=== PATIENT | female | born 1950 | race Caucasian/White ===

== ENCOUNTER 2022-01-17 03:57 | Emergency (ER) | payer SELFPAY ==
--- NOTE | ~2022-01-17 | XR_ITS ---
EXAMINATION: XR chest 1V portable DATE: 01/17/2022 06:02 INDICATION: Shortness of breath. TECHNIQUE: A single frontal view of the chest was obtained. COMPARISON: None. FINDINGS: The patient is rotated to her left. There are airspace opacities in all left lung zones wit h a perihilar and lateral predominance. There is a small left pleural effusion. There are mild airspa ce opacities in right lower lung zone. A calcified right lung nodule and calcified right hilar lymph nodes are consistent with old granulomatous disease. No pneumothorax. The heart size is normal. There is a right internal jugular port with tip in right atrium. IMPRESSION: 1. Airspace opacities in left lung and right lower lung zone suspicious for some combination of atele ctasis, pneumonia, malignancy, and treatment changes. Consider chest CT. 2. Small left pleural effusion. Reviewed, dictated and finalized at location A. TRUCTION MANAGER IMPRESSION: 1. Airspace opacities in left lung and right lower lung zone suspicious for lilian e combination of atelectasis, pneumonia, malignancy, and treatment changes. Con change person chest CT. 2. Small left pleural effusion.
--- NOTE | ~2022-01-17 | CT_ITS ---
EXAMINATION: CT brain wo con DATE: 01/17/2022 06:03 INDICATION: Syncope. TECHNIQUE: Computed tomography (CT) of the head was performed without intravenous contrast. The mA wa s adjusted according to patient size. Iterative reconstruction technique was employed. The dose-lengt h product was 605.33 mGy-cm. COMPARISON: None FINDINGS: In the right frontal lobe, there are 2 hyperdense masses with surrounding vasogenic edema. The masses are contiguous with hyperdense extra-axial material. These findings are consistent with in traparenchymal hematomas with subarachnoid extension. There is no acute ischemic infarct. The ventric les are normal in size. There is 2 mm leftward midline shift. The orbits are normal. There is mild mu cosal thickening in the ethmoid sinuses. There are bilateral mastoid effusions. IMPRESSION: 1. Two acute intraparenchymal hematomas in right frontal lobe with subarachnoid extension, most likel y arising at foci of intraparenchymal metastatic disease. Reviewed, dictated and finalized at location A. TRO MECHANICAL SOLAR TECHNICIAN IMPRESSION: 1. Two acute intraparenchymal hematomas in right frontal lobe with subarachnoid extension, most likely arising at foci of intraparenchymal metastatic disease.
--- NOTE | 2022-01-17 04:17 | ECG_ITS ---
Measurements Intervals [place] Rate: 85 P: 60 ND: 135 QRS: 78 QRSD: 75 T: 94 QT: 370 QTc: 442 Interpretive Statements SINUS RHYTHM INCOMPLETE RIGHT BUNDLE BRANCH BLOCK BORDERLINE T WAVE ABNORMALITY- HIGH LATERAL LEADS BASELINE ARTIFACT- I, II, III BORDERLINE ECG Electronically Signed On 01-17-2022 7:15:04 PATTERN DRAFTER by Neel Allen D.O.
[2022-01-17 04:25] VITALS: BP 145/94; PULSE 96; RESP 20; TEMP 36.1; O2SAT 94
--- NOTE | 2022-01-17 04:36 | PC.NURSE ---
pt has a port in the right upper chest.
--- NOTE | 2022-01-17 04:45 | ED.GENADULT ---
HPI - General Adult General Chief complaint: Unspecified Stated complaint: unresponsive Time Seen by Provider: 01/17/22 03:59 Source: patient, family and RN notes reviewed Mode of arrival: EMS Limitations: no limitations History of Present Illness Onset (ago): hour(s) (2) Radiation: other (pt was pain-free in the ED.) Relieving factors: none Exacerbating factors: none Associated symptoms: other (episodic un-responsiveness.) Related Data Home Medications Medication Instructions Recorded Confirmed albuterol sulfate 90 mcg INHALATION 6XD PRN 01/17/22 01/17/22 budesonide-formoterol [Symbicort] See Rx Instructions .ROUTE .COMPLEX 01/17/22 01/17/22 citalopram 40 mg PO DAILY 01/17/22 01/17/22 hydromorphone 2 mg PO TID PRN 01/17/22 01/17/22 ipratropium-albuterol 0.5 ml INHALATION Q5H 01/17/22 01/17/22 levofloxacin 750 mg PO DAILY 01/17/22 01/17/22 losartan 50 mg PO DAILY 01/17/22 01/17/22 ondansetron HCl 4 mg PO BID PRN 01/17/22 01/17/22 sodium chloride 1 g PO DAILY 01/17/22 01/17/22 tiotropium bromide [Spiriva with 18 mcg INHALATION BID 01/17/22 01/17/22 HandiHaler] trazodone 100 mg PO HS 01/17/22 01/17/22 Allergies Allergy/AdvReac Type Severity Reaction Status Date / Time aspirin Allergy Unknown Unknown Verified 01/17/22 04:24 codeine Allergy Unknown Unknown Verified 01/17/22 04:24 Penicillins Allergy Unknown Unknown Verified 01/17/22 04:24 Review of Systems Review of Systems: All systems reviewed & are unremarkable except as noted in HPI and below PMFSH Past Medical History Medical History AMS (altered mental status) COPD (chronic obstructive pulmonary disease) Hypertension Lung cancer Exam Const: General: cooperative, comfortable, alert and awake Nutritional Appearance: well nourished Orientation/consciousness: oriented to person and oriented to place Limitations: no limitations HENMT: Head: normal to inspection, normocephalic and atraumatic Ears: hearing grossly normal bilaterally, external ears normal, TM's normal bilaterally and EAC's normal General nose exam: Normal external nose present and Normal nares present Face and sinus: normal facial exam and sinuses nontender Mouth: Yes Normal oral and palatal mucosa present, Yes lip normal, Yes tongue normal, Yes oropharynx normal and Yes moist mucous membranes Throat: posterior oropharynx normal Eyes: General: appearance normal, both eyes and all related structures Eyelids: eyelids normal Conjunctivae: conjunctivae normal Sclera: sclerae normal Cornea: corneas normal Pupils: Equal, round and reactive pupils present Neck: Neck: normal visual inspection, full ROM and no lymphadenopathy Chest: Chest palpation & inspection: normal inspection of the chest Resp: Effort & Inspection: normal respiratory effort and Actively coughing Auscultation: rales, rhonchi and wheezes Cardio: Jugular venous distension: no JVD Palpation: normal PMI Rate: regular rate Rhythm: regular rhythm Heart sounds: S1 normal heart sound present and S2 normal heart sound present GI: GI Palp: Yes abdominal tenderness (minimal epigastric and suprapubic tenderness, normal BS) Auscultation: normal bowel sounds : General: Yes no CVA tenderness and Yes other (minimal suprapubic tenderness) Back/Spine/Pelvis: Back: no CVA tenderness Cervical Spine: cervical ROM normal Thoracic/Lumbar Spine: thoracic and lumbar spine normal to inspection Skin: General skin exam: normal color, no rashes or lesions noted and turgor normal Wounds: no wounds Hair: normal Neuro: General: oriented to person and oriented to time Cranial nerves: Yes CN's II-XII intact bilaterally, Yes Facial sensation intact/muscles of mastication intact, Yes Equal, round and reactive pupils present, Yes Normal accommodation reflex present and Yes Bilaterally intact EOM present Cognition (Neuro): normal cognition Extrem: General: normal to inspection, full ROM, no pedal
[2022-01-17 04:54] LABS: Basophils Absolute Auto 0.03 K/mm3 (0.00-0.10); Basophils Percent Auto 0.4 % (0.0-1.0); Eosinophils Absolute Auto 0.03 K/mm3 (0.02-0.50); Eosinophils Percent Auto 0.4 % (1.0-6.0); Hematocrit 31.7 % (35.0-42.0); Hemoglobin 10.3 g/dL (11.7-13.8); Immature Granulocyte Absolute 0.07 K/mm3 (0.00-0.00); Immature Granulocyte Percent A 0.9 % (0.0-0.0); Lymphocytes Absolute Auto 0.33 K/mm3 (1.10-4.50); Lymphocytes Percent Auto 4.5 % (18.0-42.0); Mean Corpuscular HGB Conc 32.5 g/dL (32.0-36.0); Mean Corpuscular Hemoglobin 31.1 pg (27.0-31.0); Mean Corpuscular Volume 95.8 fL (78.0-102.0); Mean Platelet Volume 8.9 fl (9.2-11.8); Monocytes Absolute Auto 0.84 K/mm3 (0.10-0.90); Monocytes Percent Auto 11.4 % (2.0-11.0); Neutrophils Absolute Auto 6.1 K/mm3 (1.7-7.2); Neutrophils Percent Auto 82.4 % (50.0-70.0); Platelet Count Result 203 K/mm3 (150-420); Red Blood Count 3.31 M/mm3 (4.20-5.40); Red Cell Distribution Width 13.7 % (11.6-14.4); White Blood Count 7.4 K/mm3 (4.8-10.8)
--- NOTE | 2022-01-17 05:20 | PC.NURSE ---
pt's right upper chest power port accessed per Md Meraz using a 20g x 3/4in needle, positive blood return and flushes with minimal resistance. pt tolerated well and denies pain at this time. Pt's son provided power port card which was copied and placed in pt's chart.
[2022-01-17 05:21] LABS: Alanine Aminotransferase 15 U/L (14-59); Albumin Level 2.4 g/dL (3.4-5.0); Alkaline Phosphatase 138 U/L (46-116); Anion Gap 7 mmol/L (8-16); Aspartate Amino Transferase 20 U/L (15-37); Bilirubin,Total 0.3 mg/dL (0.00-1.00); Blood Urea Nitrogen 8 mg/dL (7-18); Calcium 8.5 mg/dL (8.5-10.1); Carbon Dioxide 30 mmol/L (21-32); Chloride 94 mmol/L (98-108); Estimated CRCL calculation 44 ml/min; Estimated Glomerular Filt Rate > 60; Glucose 110 mg/dL (70-99); Osmolality Calculated 271 mOsm/kg (285-295); Potassium 3.7 mmol/L (3.5-5.1); Sodium 131 mmol/L (136-145); Total Protein 6.1 g/dL (6.4-8.2); Troponin I 46.1 ng/L (0.00-60.4)
[2022-01-17 05:27] LABS: SARS-CoV-2 Ag Negative (Negative)
[2022-01-17 05:28] LABS: Thyroid Stimulating Hormone 3.98 uIU/mL (0.36-3.74)
[2022-01-17] MEDS: ONDANSETRON INJ 4 MG/2 ML VIAL IV PUSH (05:43)
[2022-01-17] MEDS: PANTOPRAZOLE SODIUM IV 40 MG VIAL IV PUSH (05:44)
[2022-01-17] MEDS: SODIUM CHLORIDE 0.9% IV 500 ML 999 ML IV CONT (05:44)
[2022-01-17 06:03] LABS: Bilirubin Urine Negative (Negative); Blood Urine Negative (Negative); Color Urine Light Yellow (Yellow); Glucose Urine UA Negative (Negative); Ketones Urine Negative (Negative); Leukocyte Esterase Ur Negative (Negative); Nitrate Urine Negative (Negative); Protein Urine Negative (Negative); Urobilinogen Urine 0.2 mg/dL (0.2-1.0); pH Urine 7.5 (5.0-8.0)
[2022-01-17 06:07] LABS: Add Urine Microscopic? YES; Amorphous Sediment Urine Heavy; Appearance Urine Cloudy (Clear); RBC Urine None seen /hpf (0-2); Squamous Epithelial Cell Urine Rare /hpf (Few); WBC Urine None seen /hpf (0-3)
[2022-01-17 06:08] VITALS: BP 146/80; PULSE 78; RESP 20; O2SAT 94
[2022-01-17 06:08] LABS: Bacteria Urine Trace /hpf
[2022-01-17] MEDS: HEPARIN SODIUM LOCK FLUSH 500 UNITS/5 ML SYRINGE (06:47)
[2022-01-17 07:05] VITALS: BP 159/82; PULSE 80; RESP 18; TEMP 36.6; O2SAT 100
--- NOTE | 2022-01-17 07:08 | PC.NURSE ---
port-a-cath de-accessed, flushed with NS 10ml, heparin 5ml and dressing applied.
== END 2022-01-17 07:10 | disposition home or self-care (01) ==
PROVIDERS: Emergency Provider Emergency Medicine
DX: R56.9 Unspecified convulsions (principal); J44.9 Chronic obstructive pulmonary disease, unspecified; R40.4 Transient alteration of awareness; C34.90 Malignant neoplasm of unspecified part of unspecified bronchus or lung; Z20.822 Contact with and (suspected) exposure to COVID-19
CPT/HCPCS: 36415; 70450; 71045; 80053; 81001; 84443; 84484; 85025; 87426; 93005; 96365; 96374; 96375; 99284; C9113; C9803; J2405; J7040